=== PATIENT | female | born 1970 | race African-American/Black ===

== ENCOUNTER 2022-05-19 00:04 | Emergency (ER) | payer OTHER ==
[~2022-05-19] VITALS: Ht 157.5 cm; Wt 78.9 kg
--- NOTE | 2022-05-19 00:11 | NUR ---
Patient placed in room 1B
--- NOTE | 2022-05-19 00:35 | NUR ---
Dr. Crouch evaluated patient at bedside. MSE in progress.
--- NOTE | 2022-05-19 00:40 | NUR ---
Patient's daughter at bedside
[2022-05-19] MEDS ORDERED: ONDANSETRON HCL 4 MG/5 ML UDC ORAL SOL PO ONE (01:15)
[2022-05-19] MEDS ORDERED: HYDROMORPHONE 1 MG/1 ML DISP.SYRIN IM ONE (01:15)
[2022-05-19] MEDS ORDERED: KETOROLAC TROMETHAMINE 60 MG INJ IM ONE ×2 (01:15→01:33)
[2022-05-19] MEDS ORDERED: ONDANSETRON HCL 4 MG/5 ML UDC ORAL SOL ONE (01:32)
[2022-05-19] MEDS ORDERED: HYDROMORPHONE 2 MG/1 ML DISP.SYRIN ONE (01:33)
[2022-05-19] MEDS ORDERED: HYDR-3980 PO (01:37)
[2022-05-19] MEDS ORDERED: ONDA4TAB5 PO (01:37)
--- NOTE | 2022-05-19 02:09 | NUR ---
Patient discharged to home in stable condition. Written and verbal after care instructions given. Patient verbalizes understanding of instructions. Stressed follow up or return to ER for worsening s/s.
[2022-05-19 03:06] VITALS: BP 144/85
== END 2022-05-19 02:35 | disposition home or self-care (01) ==
LOC: ER 00:04
DX: S80.12XA Contusion of left lower leg, initial encounter (principal); S80.11XA Contusion of right lower leg, initial encounter; S09.90XA Unspecified injury of head, initial encounter; Z79.899 Other long term (current) drug therapy; Z88.1 Allergy status to other antibiotic agents; Z88.0 Allergy status to penicillin; V43.52XA Car driver injured in collision with other type car in traffic accident, initial encounter; Y93.89 Activity, other specified; Y92.410 Unspecified street and highway as the place of occurrence of the external cause; Y99.8 Other external cause status
CPT/HCPCS: 99284; 73502; 96372 ×2; J1885; J1170; A4663; Q0162